=== PATIENT | female | born 2000 | race Two or more races ===

== ENCOUNTER 2023-11-25 14:50 | Observation (INO) | payer MEDICAID, OTHER ==
[2023-11-25 15:38] LABS: Fern Testing Negative
[2023-11-25 15:49] LABS: Urine Bacteria MOD /hpf (None Seen); Urine Blood Negative /uL (Negative); Urine Clarity HAZY (Clear); Urine Color Yellow (Yellow); Urine Protein, UAD Negative (Negative); Urine Specific Gravity 1.015 (1.001-1.035); Urine Urobilinogen Normal (Negative); Urine WBC <1 /hpf (0 - 5); Urine pH 5.5 (5.0-8.0)
== END 2023-11-25 16:30 | disposition home or self-care (01) ==
LOC: UNDOADMOB 14:50 → LDRP 14:50
PROVIDERS: ADMIT Obstetrics & Gynecology; ATTEND Obstetrics & Gynecology
DX: Z36.89 Encounter for other specified antenatal screening (principal); Z3A.32 32 weeks gestation of pregnancy
CPT/HCPCS: 59025; 76818; 81001; 81002; 84112; G0378; Q0114

== ENCOUNTER 2024-01-08 13:15 | Observation (INO) | payer MEDICAID ==
[~2024-01-08 13:15] MED LIST: PREN-96 PO
[2024-01-08 14:21] LABS: Fern Testing Negative
== END 2024-01-08 14:58 | disposition home or self-care (01) ==
LOC: LDRP 13:15
PROVIDERS: ADMIT Obstetrics & Gynecology; ATTEND Obstetrics & Gynecology
DX: O62.9 Abnormality of forces of labor, unspecified (principal); O21.2 Late vomiting of pregnancy; O26.893 Other specified pregnancy related conditions, third trimester; R10.9 Unspecified abdominal pain; Z3A.38 38 weeks gestation of pregnancy
CPT/HCPCS: 59025; 81002; 84112; 94760; G0378; Q0114

== ENCOUNTER 2024-01-11 16:27 | Observation (INO) | payer MEDICAID ==
[~2024-01-11] VITALS: Ht 162.6 cm; Wt 95.7 kg
[2024-01-11 17:42] LABS: Urine Bacteria FEW /hpf (None Seen); Urine Blood Negative /uL (Negative); Urine Clarity Clear (Clear); Urine Color Light-Yellow (Yellow); Urine Protein, UAD Negative (Negative); Urine Specific Gravity 1.015 (1.001-1.035); Urine Urobilinogen Normal (Negative); Urine WBC 3 /hpf (0 - 5)
[2024-01-11 17:52] LABS: Protein, Urine 17.4 mg/dL (0.0-11.9)
[2024-01-11 17:55] LABS: Creatinine, Urine 117.84 mg/dL (30.0-125.0); Urine Protein/Creatinine Ratio 0.15
[2024-01-11 18:10] LABS: Basophils # (auto) 0 10 ^3/uL (0-0.2); Eosinophils # (auto) 0 10 ^3/uL (0-0.8); Eosinophils % (auto) 0.2 % (0.0-7.0); Hematocrit 33.4 % (36.0-46.0); Hemoglobin 11.1 g/dL (12.2-16.2); Lymphocytes # (auto) 2.6 10 ^3/uL (0.4-5.4); Mean Corpuscular Volume 77.1 fL (80.0-100.0); Monocytes # (auto) 0.6 10 ^3/uL (0-1.3); Monocytes % (auto) 5.9 % (0.0-12.0)
[2024-01-11 18:12] LABS: Basophils % (auto) 0.2 % (0.0-2.0); Lymphocytes % (auto) 25.1 % (10.0-50.0); Mean Corpuscular Hemoglobin 25.6 pg (28.0-32.0); Mean Corpuscular Hgb Conc. 33.2 g/dL (32.0-36.0); Neutrophils % (auto) 68.6 % (37.0-80.0); Red Blood Cells 4.33 10^6/uL (4.0-5.20); Red Cell Distribution Width 16.4 % (11.8-14.3); White Blood Cell 10.2 10^3/uL (4.4-10.8)
[2024-01-11 18:29] LABS: Alanine Aminotransferase 27 U/L (7-40); Albumin 3.5 g/dL (3.2-4.8); Alkaline Phosphatase 163 U/L (46-116); Anion Gap 8 (5-15); Aspartate Aminotransferase 18 U/L (13-40); BUN/Creatinine Ratio 9.1 (10.0-20.0); Bilirubin, Total 0.6 mg/dL (0.2-1.0); Blood Urea Nitrogen 6 mg/dL (9-23); Calcium 8.8 mg/dL (8.7-10.4); Carbon Dioxide 21 mmol/L (20-30); Chloride 108 mmol/L (98-107); Glucose 99 mg/dL (74-106); Potassium 3.8 mmol/L (3.5-5.1); Sodium 137 mmol/L (136-145); Total Protein 6.1 g/dL (5.7-8.2); Uric Acid 5.6 mg/dL (3.1-7.8)
[2024-01-11 18:30] LABS: INR 0.92 (0.9-1.15); Partial Thromboplastin Time 24.1 SEC (24.5-34.5); Prothrombin Time 9.7 sec (9.3-11.8)
[2024-01-11] MEDS: ACETAMINOPHEN 500 MG TAB PO ONE (18:57)
== END 2024-01-11 19:44 | disposition home or self-care (01) ==
LOC: LDRP 16:27
PROVIDERS: ADMIT Obstetrics & Gynecology; ATTEND Obstetrics & Gynecology
DX: O62.9 Abnormality of forces of labor, unspecified (principal); O21.2 Late vomiting of pregnancy; O26.893 Other specified pregnancy related conditions, third trimester; R51.9 Headache, unspecified; H53.8 Other visual disturbances; Z3A.39 39 weeks gestation of pregnancy; Z86.2 Personal history of diseases of the blood and blood-forming organs and certain disorders involving the immune mechanism
CPT/HCPCS: 36415; 59025; 76805; 76818; 80053; 81001; 81002; 82570; 84156; 84550; 85025; 85610; 85730; 94760; G0378

== ENCOUNTER 2024-01-14 07:50 | Observation (INO) | payer MEDICAID | END 2024-01-14 09:40 | disposition home or self-care (01) | LOC: UNDOADMOB 07:50 → LDRP 07:50 | PROVIDERS: ADMIT Obstetrics & Gynecology; ATTEND Obstetrics & Gynecology | DX: O13.3 Gestational [pregnancy-induced] hypertension without significant proteinuria, third trimester (principal); Z3A.39 39 weeks gestation of pregnancy | CPT/HCPCS: 59025; 76818; 81002; 94760; G0378 ==

== ENCOUNTER 2024-01-15 19:20 | Observation (INO) | payer MEDICAID ==
[2024-01-15 20:15] LABS: Urine Bacteria None Seen /hpf (None Seen)
[2024-01-15 20:29] LABS: Basophils # (auto) 0 10 ^3/uL (0-0.2); Eosinophils # (auto) 0.1 10 ^3/uL (0-0.8); Mean Corpuscular Hemoglobin 25.4 pg (28.0-32.0); Monocytes # (auto) 0.7 10 ^3/uL (0-1.3); Red Blood Cells 4.32 10^6/uL (4.0-5.20)
[2024-01-15 20:31] LABS: Basophils % (auto) 0.4 % (0.0-2.0); Eosinophils % (auto) 0.5 % (0.0-7.0); Lymphocytes # (auto) 2.3 10 ^3/uL (0.4-5.4); Lymphocytes % (auto) 21.4 % (10.0-50.0); Mean Corpuscular Hgb Conc. 33.2 g/dL (32.0-36.0); Mean Corpuscular Volume 76.5 fL (80.0-100.0); Monocytes % (auto) 6.7 % (0.0-12.0); Neutrophils # (auto) 7.6 10 ^3/uL (1.6-8.6); Nucleated Red Blood Cells % 0.1 %; Red Cell Distribution Width 16.9 % (11.8-14.3); White Blood Cell 10.7 10^3/uL (4.4-10.8)
[2024-01-15 20:50] LABS: Alanine Aminotransferase 20 U/L (7-40); Albumin 3.7 g/dL (3.2-4.8); Alkaline Phosphatase 167 U/L (46-116); Anion Gap 9 (5-15); Aspartate Aminotransferase 14 U/L (13-40); BUN/Creatinine Ratio 10.9 (10.0-20.0); Blood Urea Nitrogen 7 mg/dL (9-23); Calcium 8.9 mg/dL (8.7-10.4); Carbon Dioxide 20 mmol/L (20-30); Chloride 107 mmol/L (98-107); Glucose 80 mg/dL (74-106); Potassium 3.7 mmol/L (3.5-5.1); Sodium 136 mmol/L (136-145); Uric Acid 4.8 mg/dL (3.1-7.8)
[2024-01-15 20:51] LABS: Bilirubin, Total 0.6 mg/dL (0.2-1.0); Total Protein 6.3 g/dL (5.7-8.2)
[2024-01-15 21:06] LABS: INR 0.92 (0.9-1.15); Partial Thromboplastin Time 23.2 SEC (24.5-34.5); Prothrombin Time 9.8 sec (9.3-11.8)
[2024-01-15 21:11] LABS: Urine Blood Negative /uL (Negative); Urine Clarity Clear (Clear); Urine Color Light-Yellow (Yellow); Urine Protein, UAD Negative (Negative); Urine Specific Gravity 1.012 (1.001-1.035); Urine Urobilinogen Normal (Negative); Urine WBC <1 /hpf (0 - 5); Urine pH 6.5 (5.0-9.0)
[2024-01-15 21:31] LABS: Amphetamine Screen, Urine Neg (NEGATIVE); Barbiturate Scree,Urine Neg (NEGATIVE); Benzodiazephine Screen, Urine Neg (NEGATIVE); Cannabinoid Screen, Urine Neg (NEGATIVE); Cocaine Screen, Urine Neg (NEGATIVE); Opiate Scree,Urine Neg (NEGATIVE); Phencyclidine Screen, Urine Neg (NEGATIVE)
== END 2024-01-15 21:02 | disposition home or self-care (01) ==
LOC: LDRP 19:20
PROVIDERS: ADMIT Obstetrics & Gynecology; ATTEND Obstetrics & Gynecology
DX: O48.0 Post-term pregnancy (principal); Z3A.39 39 weeks gestation of pregnancy; Z79.899 Other long term (current) drug therapy; Z86.2 Personal history of diseases of the blood and blood-forming organs and certain disorders involving the immune mechanism
CPT/HCPCS: 36415; 59025; 76818; 80053; 80307; 81001; 81002; 84550; 85025; 85384; 85610; 85730; 86592; 86703; 86762; 86803; 86850; 86900; 86901; 87340; 94760; G0378

== ENCOUNTER 2024-01-16 19:21 | Inpatient (IN) | payer MEDICAID, OTHER ==
[~2024-01-16] VITALS: Ht 162.6 cm; Wt 97.1 kg
[2024-01-16] MEDS ORDERED: BUTORPHANOL TARTRATE 2 MG/1 ML VIAL IV PRN (19:30)
[2024-01-16 19:59] LABS: Urine Bacteria None Seen /hpf (None Seen)
[2024-01-16 20:06] LABS: Urine Blood Negative /uL (Negative); Urine Clarity Clear (Clear); Urine Color Light-Yellow (Yellow); Urine Protein, UAD Negative (Negative); Urine Specific Gravity 1.013 (1.001-1.035); Urine Urobilinogen Normal (Negative); Urine WBC 1 /hpf (0 - 5); Urine pH 5.5 (5.0-9.0)
[2024-01-16 20:12] LABS: Basophils # (auto) 0.1 10 ^3/uL (0-0.2); Basophils % (auto) 0.6 % (0.0-2.0); Hemoglobin 11.1 g/dL (12.2-16.2); Mean Corpuscular Volume 78.2 fL (80.0-100.0); Neutrophils # (auto) 8.4 10 ^3/uL (1.6-8.6)
[2024-01-16 20:13] LABS: Eosinophils # (auto) 0 10 ^3/uL (0-0.8); Eosinophils % (auto) 0.2 % (0.0-7.0); Hematocrit 34.2 % (36.0-46.0); Lymphocytes # (auto) 2.5 10 ^3/uL (0.4-5.4); Lymphocytes % (auto) 21.3 % (10.0-50.0); Mean Corpuscular Hemoglobin 25.3 pg (28.0-32.0); Mean Corpuscular Hgb Conc. 32.3 g/dL (32.0-36.0); Monocytes # (auto) 0.7 10 ^3/uL (0-1.3); Monocytes % (auto) 5.6 % (0.0-12.0); Neutrophils % (auto) 72.3 % (37.0-80.0); Red Blood Cells 4.37 10^6/uL (4.0-5.20); Red Cell Distribution Width 16.7 % (11.8-14.3); White Blood Cell 11.6 10^3/uL (4.4-10.8)
[2024-01-16 20:17] LABS: Amphetamine Screen, Urine Neg (NEGATIVE); Barbiturate Scree,Urine Neg (NEGATIVE); Benzodiazephine Screen, Urine Neg (NEGATIVE); Cocaine Screen, Urine Neg (NEGATIVE); Opiate Scree,Urine Neg (NEGATIVE)
[2024-01-16 20:18] LABS: Cannabinoid Screen, Urine Neg (NEGATIVE); Phencyclidine Screen, Urine Neg (NEGATIVE)
[2024-01-16 20:25] LABS: INR 0.92 (0.9-1.15); Partial Thromboplastin Time 23.1 SEC (24.5-34.5); Prothrombin Time 9.8 sec (9.3-11.8)
[2024-01-16 20:30] LABS: Alanine Aminotransferase 14 U/L (7-40); Albumin 3.8 g/dL (3.2-4.8); Alkaline Phosphatase 172 U/L (46-116); Anion Gap 8 (5-15); Aspartate Aminotransferase 21 U/L (13-40); Bilirubin, Total 0.5 mg/dL (0.2-1.0); Blood Urea Nitrogen 6 mg/dL (9-23); Calcium 8.7 mg/dL (8.5-10.1); Carbon Dioxide 19 mmol/L (20-30); Chloride 108 mmol/L (98-107); Glucose 89 mg/dL (74-106); Potassium 3.7 mmol/L (3.5-5.1); Sodium 135 mmol/L (136-145)
[2024-01-16 20:31] LABS: Total Protein 6.6 g/dL (5.7-8.2)
[2024-01-16] MEDS: miSOPROStol 50 MCG per PRE-CUT 1/2 TAB PO PRN (22:30)
[2024-01-16] MEDS: LACTATED RINGER'S 1,000 ML IV SCH (23:01)
[2024-01-17] MEDS: BUTORPHANOL TARTRATE 2 MG/1 ML VIAL IV PRN (07:24)
[2024-01-17] MEDS: LACT. RINGERS/OXYTOCIN 20UNITS 1,000 ML IV SCH (08:22)
[2024-01-17] MEDS: NALOXONE HCL 0.4 MG/ML VIAL IV ONE (16:00)
[2024-01-17] MEDS ORDERED: ePHEDrine SULFATE 50 MG/ML AMP IV ONE (16:00)
[2024-01-17] MEDS ORDERED: ROPIVACAINE 0.5% (5MG/ML) 20ML AMPULE IJ ONE (16:00)
[2024-01-17] MEDS ORDERED: fentaNYL CITRATE 100 MCG/2 ML VL IV ONE (16:00)
[2024-01-17] MEDS: METHYLERGONOVINE MALEATE 0.2 MG/ML AMP IM ONE (17:00)
[2024-01-17] MEDS: LACT. RINGERS/OXYTOCIN 20UNITS 500 ML IV ONE ×2 (17:01→17:03)
[2024-01-17] MEDS: LIDOCAINE 2%HCL (LOCAL ANESTH.) INJ 20ML MDV IJ PRN (17:16)
[2024-01-17] MEDS ORDERED: ONDANSETRON ODT 4 MG TAB PO PRN (17:30)
[2024-01-17] MEDS: ACETAMINOPHEN 325 MG TAB PO PRN (18:57)
[2024-01-17] MEDS: IBUPROFEN 600 MG TAB PO PRN (20:52)
[2024-01-17] MEDS: DOCUSATE SOD 100 MG CAP PO SCH (22:00)
[2024-01-17 23:00] VITALS: BP 109/72; PULSE 83; RESP 18; TEMP 98.9; O2SAT 97
[2024-01-18 03:00] VITALS: BP 98/65; PULSE 74; RESP 16; TEMP 98.3; O2SAT 97
[2024-01-18] MEDS: PHISODERM TOP SOLN 240ML BTL TOP PRN (03:29)
[2024-01-18] MEDS: DERMOPLAST 60ML BOTTLE TOP PRN (03:29)
[2024-01-18] MEDS: WITCH HAZEL-GLYCERIN PAD TOP PRN (03:29)
[2024-01-18 07:15] VITALS: BP 107/71; PULSE 68; RESP 14; TEMP 97.8; O2SAT 97
[2024-01-18 11:00] VITALS: BP 97/55; PULSE 59; RESP 13; TEMP 98; O2SAT 96
[2024-01-18] MEDS ORDERED: DOCU-265 PO (11:34)
[2024-01-18] MEDS ORDERED: IBU600T PO (11:34)
[2024-01-18 12:18] LABS: Eosinophils # (auto) 0 10 ^3/uL (0-0.8); Lymphocytes # (auto) 2.9 10 ^3/uL (0.4-5.4); Monocytes # (auto) 0.6 10 ^3/uL (0-1.3)
[2024-01-18 12:20] LABS: Basophils # (auto) 0.1 10 ^3/uL (0-0.2); Basophils % (auto) 0.6 % (0.0-2.0); Eosinophils % (auto) 0.3 % (0.0-7.0); Hematocrit 28.9 % (36.0-46.0); Hemoglobin 9.8 g/dL (12.2-16.2); Lymphocytes % (auto) 26.4 % (10.0-50.0); Mean Corpuscular Hemoglobin 26.3 pg (28.0-32.0); Mean Corpuscular Volume 77.2 fL (80.0-100.0); Monocytes % (auto) 5.3 % (0.0-12.0); Neutrophils # (auto) 7.3 10 ^3/uL (1.6-8.6); Neutrophils % (auto) 67.4 % (37.0-80.0); Red Blood Cells 3.75 10^6/uL (4.0-5.20); White Blood Cell 10.9 10^3/uL (4.4-10.8)
[2024-01-18 15:00] VITALS: BP 114/77; PULSE 63; RESP 16; TEMP 98; O2SAT 97
[2024-01-18] MEDS ORDERED: FER325T PO (15:54)
[2024-01-18 18:40] VITALS: BP 107/69; PULSE 77; RESP 16; TEMP 97.7; O2SAT 96
[2024-01-18] MEDS ORDERED: miSOPROStol 100 mcg TAB PO ONE (22:15)
[2024-01-18 23:16] VITALS: BP 107/72; PULSE 79; RESP 18; TEMP 98; O2SAT 96
[2024-01-19 03:11] VITALS: BP 108/69; PULSE 85; RESP 16; TEMP 98; O2SAT 98
[2024-01-19 07:00] VITALS: BP 111/81; PULSE 82; RESP 16; TEMP 98; O2SAT 98
[2024-01-19 11:00] VITALS: BP 101/66; PULSE 86; RESP 16; TEMP 98; O2SAT 97
== END 2024-01-19 14:15 | disposition home or self-care (01) | DRG 560 ==
LOC: LDRP 19:21
PROVIDERS: ADMIT Obstetrics & Gynecology; ATTEND Obstetrics & Gynecology
PROC: 10E0XZZ Delivery of Products of Conception, External Approach (ICD-10-PCS; principal; 2024-01-17)
PROC: 0KQM0ZZ Repair Perineum Muscle, Open Approach (ICD-10-PCS; 2024-01-17)
PROC: 10D17Z9 Manual Extraction of Products of Conception, Retained, Via Natural or Artificial Opening (ICD-10-PCS; 2024-01-17)
DX: O48.0 Post-term pregnancy (principal); Z37.0 Single live birth; R71.0 Precipitous drop in hematocrit; O69.81X0 Labor and delivery complicated by cord around neck, without compression, not applicable or unspecified; Z3A.40 40 weeks gestation of pregnancy; O70.1 Second degree perineal laceration during delivery
CPT/HCPCS: 36415; 59025; 59409; 80053; 80307; 81001; 85025; 85610; 85730; 86850; 86900; 86901; 94760; 94762; 96360; 96361; 96365; 96366; 96372; G0378; J2590; J7060